=== PATIENT | male | born 1960 | race Caucasian/White ===

== ENCOUNTER 2017-09-03 17:54 | Emergency (ER) | payer SELFPAY ==
[~2017-09-03] VITALS: Ht 172.7 cm; Wt 72.6 kg
[~2017-09-03 17:54] MED LIST: ACET325T53 MC
--- NOTE | 2017-09-03 18:00 | NUR ---
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 Blood sugar 388 upon arrival. PT. also c/o migraine headache since this am. Patient is a/ox 4. Breathing even and unlabored. No sob. Vitals stable. Safety and comfort meaures in place. Awaiting md orders.
[2017-09-03] MEDS ORDERED: ONDANSETRON HCL/PF 4 MG/2 ML VIAL IVP ONE (18:30)
[2017-09-03] MEDS ORDERED: IV NS 0.9% 1,000 ML BAG IV ONE (18:30)
[2017-09-03] MEDS ORDERED: MORPHINE SULFATE INJ 2 MG/ML DISP.SYRIN IV ONE (18:30)
[2017-09-03] MEDS ORDERED: MORPHINE SULFATE INJ 4 MG/ML DISP.SYRIN ONE (18:36)
[2017-09-03] MEDS ORDERED: ONDANSETRON HCL/PF 4 MG/2 ML VIAL ONE (18:36)
--- NOTE | 2017-09-03 18:40 | NUR ---
new iv started on right hand, 20 g. blood drawn and sent to lab.
[2017-09-03 18:42] LABS: BASOPHILS # (AUTO) 0.3 /CMM (0.0-0.2); BASOPHILS % (AUTO) 2.6 % (0.0-2.0); EOSINOPHILS # (AUTO) 0.3 /CMM (0.0-0.7); EOSINOPHILS % (AUTO) 2.5 % (0.0-6.0); HEMATOCRIT 43 % (39-51); HEMOGLOBIN 14.8 g/dL (13.5-17.5); LYMPHOCYTES # (AUTO) 1.1 /CMM (0.8-4.8); LYMPHOCYTES % (AUTO) 10.2 % (20.0-44.0); MEAN CORPUSCULAR HEMOGLOBIN 32 PG (26.0-33.0); MEAN CORPUSCULAR HGB CONC 35 g/dl (31.0-36.0); MEAN CORPUSCULAR VOLUME 92 fL (80-96); MONOCYTES # (AUTO) 0.8 /CMM (0.1-1.30); MONOCYTES % (AUTO) 7.2 % (2.0-12.0); NEUTROPHILS # (AUTO) 7.9 /CMM (1.8-8.9); NEUTROPHILS % (AUTO) 77.5 % (43.0-81.0); PLATELET COUNT (AUTO) 448 /CMM (150-450); RDW COEFFICIENT OF VARIATION 11.8 (11.5-15.0); RED BLOOD CELL COUNT(AUTO) 4.69 MIL/uL (4.5-6.0); WHITE BLOOD COUNT (AUTO) 10.4 K/uL (4.3-11.0)
--- NOTE | 2017-09-03 18:42 | NUR ---
patient medicated per md orders.
[2017-09-03 18:47] LABS: ABG BASE EXCESS -1.7 mmol/L; ABG OXYGEN SATURATION 87.8 % (92.0-98.5); ABG PCO2 29.9 mmHg (35.0-45.0); ABG PO2 50.7 mmHg (75.0-100.0); COHb 6.9 % (0.5-1.5); MetHb 0.4 % (0.0-1.5); O2Hb 81.4 % (94.0-97.0)
[2017-09-03 18:55] LABS: CALCIUM, SERUM 9.1 mg/dL (8.5-10.1); CARBON DIOXIDE 22 mmol/L (21-32); CHLORIDE 90 mmol/L (98-107); CREATININE 0.8 mg/dL (0.6-1.3); POTASSIUM 4.5 mmol/L (3.5-5.1); SODIUM SERUM 123 mmol/L (136-145); UREA NITROGEN, BLOOD 12 mg/dL (7-18)
[2017-09-03 18:59] LABS: TROPONIN I < 0.017 ng/mL (0.00-0.056)
[2017-09-03 19:05] LABS: GLUCOSE 357 mg/dL (74-106)
--- NOTE | 2017-09-03 19:18 | NUR ---
Report given to Franck RAPHAEL for SANYA.
--- NOTE | 2017-09-03 19:19 | NUR ---
RECEIVED REPORT FROM DONAVON ENCARNACION FOR SANYA.
--- NOTE | 2017-09-03 19:20 | NUR ---
DR. CABA AT BEDSIDE SPEAKING TO PT REGARDING RESULTS.
[2017-09-03] MEDS ORDERED: HYDROCODONE/APAP 10/325MG 1 EA TABLET ONE (19:26)
--- NOTE | 2017-09-03 19:29 | NUR ---
VERIFIED AND WITNESSED LISPRO 6UNITS SQ PER MD ORDERS WITH [facility]AV[facility] ENCARNACION.
[2017-09-03] MEDS ORDERED: HYDROCODONE/APAP 10/325MG 1 EA TABLET PO ONE (19:30)
[2017-09-03] MEDS ORDERED: INSULIN LISPRO/ASPART 100 UNIT/ML CARTRIDGE SQ ONE (19:30)
--- NOTE | 2017-09-03 20:00 | NUR ---
IV removed. Catheter intact and site benign. Pressure and 4x4 applied to site. No bleeding noted. Patient discharged to home in stable condition. Written and verbal after care instructions given. Patient verbalizes understanding of instruction. ambulatory with a steady gait. instructed not to drive. pt verbalize understanding. pt accompanied by friend.
[2017-09-03 20:01] VITALS: BP 110/87
== END 2017-09-03 20:03 | disposition home or self-care (01) ==
LOC: ER 18:01
DX: E11.65 Type 2 diabetes mellitus with hyperglycemia (principal); E86.0 Dehydration; R51 Headache; F17.200 Nicotine dependence, unspecified, uncomplicated; Z79.4 Long term (current) use of insulin
CPT/HCPCS: 36415; 36600; 71010; 80048; 82803; 84484; 85025; 93005; 96361; 96372; 96374; 96375; 99285; A4606; J1815; J2270; J2405; J7030; Z7610

== ENCOUNTER 2017-09-09 13:06 | Emergency (ER) | payer SELFPAY ==
[~2017-09-09] VITALS: Ht 172.7 cm; Wt 72.6 kg
--- NOTE | 2017-09-09 13:10 | NUR ---
AAOX3, C/O HEADACHES X THIS AM, "I CHECKED MY SUGAR ITS 425" HUMALOG 10 UNITS TAKEN 2 HRS AGO. RR IS EVEN AND UNLABORED WITH NAD NOTED. SKIN IS WARM AND DRY. DR URIOSTEGUI AT BS FOR EVAL.
[2017-09-09] MEDS ORDERED: HYDROMORPHONE INJ 2 MG/ML DISP.SYRIN IV ONE (13:30)
[2017-09-09] MEDS ORDERED: IV NS 0.9% 1,000 ML BAG IV ONE (13:30)
[2017-09-09] MEDS ORDERED: ONDANSETRON HCL/PF 4 MG/2 ML VIAL IVP ONE (13:30)
[2017-09-09] MEDS ORDERED: ONDANSETRON HCL/PF 4 MG/2 ML VIAL ONE (13:39)
[2017-09-09] MEDS ORDERED: HYDROMORPHONE INJ 2 MG/ML DISP.SYRIN ONE ×2 (13:39→15:19)
[2017-09-09 13:41] LABS: BASOPHILS % (AUTO) 0.3 % (0.0-2.0); EOSINOPHILS # (AUTO) 0.2 /CMM (0.0-0.7); EOSINOPHILS % (AUTO) 1.3 % (0.0-6.0); HEMATOCRIT 44 % (39-51); HEMOGLOBIN 14.7 g/dL (13.5-17.5); LYMPHOCYTES # (AUTO) 1.1 /CMM (0.8-4.8); LYMPHOCYTES % (AUTO) 9.4 % (20.0-44.0); MEAN CORPUSCULAR HEMOGLOBIN 31 PG (26.0-33.0); MEAN CORPUSCULAR HGB CONC 33 g/dl (31.0-36.0); MEAN CORPUSCULAR VOLUME 93 fL (80-96); MONOCYTES # (AUTO) 0.5 /CMM (0.1-1.30); MONOCYTES % (AUTO) 4.5 % (2.0-12.0); NEUTROPHILS # (AUTO) 9.7 /CMM (1.8-8.9); NEUTROPHILS % (AUTO) 84.5 % (43.0-81.0); PLATELET COUNT (AUTO) 406 /CMM (150-450); RDW COEFFICIENT OF VARIATION 12.5 (11.5-15.0); RED BLOOD CELL COUNT(AUTO) 4.75 MIL/uL (4.5-6.0); WHITE BLOOD COUNT (AUTO) 11.5 K/uL (4.3-11.0)
[2017-09-09 13:55] LABS: ALBUMIN 3.1 g/dL (3.4-5.0); BILIRUBIN,DIRECT 0.1 mg/dL (0.0-0.2); BILIRUBIN,TOTAL 0.2 mg/dL (0.2-1.0); CALCIUM, SERUM 9.1 mg/dL (8.5-10.1); POTASSIUM 4.5 mmol/L (3.5-5.1); TOTAL PROTEIN, SERUM 6.8 g/dL (6.4-8.2)
[2017-09-09] MEDS ORDERED: INSULIN REGULAR, HUMAN 100 UNIT/ML 10 ML VIAL ONE (14:14)
--- NOTE | 2017-09-09 14:17 | NUR ---
CALLED RT FORA BREATHING TREATMENT ORDER.
[2017-09-09] MEDS ORDERED: IPRATROPIUM NEB FS 0.5 MG/2.5 ML AMPUL.NEB ONE (14:23)
[2017-09-09] MEDS ORDERED: ALBUTEROL FS 2.5 MG/3 ML VIAL.NEB ONE (14:23)
[2017-09-09] MEDS ORDERED: ALBUTEROL FS 2.5 MG/3 ML VIAL.NEB NEB ONE (14:30)
[2017-09-09] MEDS ORDERED: IV NS 0.9% 1,000 ML IV ONE (14:30)
[2017-09-09] MEDS ORDERED: INSULIN REGULAR, HUMAN 100 UNIT/ML 10 ML VIAL SQ ONE (14:30)
[2017-09-09] MEDS ORDERED: IPRATROPIUM NEB FS 0.5 MG/2.5 ML AMPUL.NEB NEB ONE (14:30)
[2017-09-09] MEDS ORDERED: METOCLOPRAMIDE HCL 10 MG/2 ML VIAL IV ONE (15:00)
[2017-09-09] MEDS ORDERED: HYDROMORPHONE 1 MG/1 ML DISP.SYRIN IV ONE (15:00)
[2017-09-09] MEDS ORDERED: METOCLOPRAMIDE HCL 10 MG/2 ML VIAL ONE (15:19)
--- NOTE | 2017-09-09 15:47 | NUR ---
IV removed. Catheter intact and site benign. Pressure and 4x4 applied to site. No bleeding noted.Patient discharged to home in stable condition. Written and verbal after care instructions given. Patient verbalizes understanding of instruction.
[2017-09-09 15:55] VITALS: BP 110/65
== END 2017-09-09 15:55 | disposition home or self-care (01) ==
LOC: ER 13:07
DX: E11.65 Type 2 diabetes mellitus with hyperglycemia (principal); G43.909 Migraine, unspecified, not intractable, without status migrainosus; F17.200 Nicotine dependence, unspecified, uncomplicated; Z79.4 Long term (current) use of insulin
CPT/HCPCS: 36415; 71010; 80048; 80076; 82010; 82962 ×2; 83690; 85025; 94640; 96361; 96372; 96374; 96375; 96376; 99285; A4606; J1170 ×2; J1815; J2405; J2765; J7030 ×2; Z7610

== ENCOUNTER 2017-09-16 12:46 | Emergency (ER) | payer SELFPAY ==
[~2017-09-16] VITALS: Ht 165.1 cm; Wt 68.0 kg
--- NOTE | 2017-09-16 13:10 | NUR ---
SELF PRESENTS TO ER C/O HEADACHE, HYPERGLYCEMIA. 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 A/OX 4. BREATHING EVEN AND UNLABORED. NO SOB. VITALS STABLE. SAFETY AND COMFORT MEASURES IN PLACE. AWAITING MD ORDERS.
--- NOTE | 2017-09-16 13:20 | NUR ---
NEW IV STARTED ON RFA, 20 G. BLOOD DRAWN AND SENT TO LAB.
[2017-09-16] MEDS ORDERED: IV NS 0.9% 1,000 ML BAG IV ONE (13:30)
[2017-09-16] MEDS ORDERED: HYDROCODONE/APAP 5/325MG 1 EACH TABLET ONE (13:30)
[2017-09-16] MEDS ORDERED: MAG HYDROX/AL HYDROX/SIMETH 30 ML UDC ONE ×2 (13:30→13:35)
[2017-09-16] MEDS ORDERED: HYDROCODONE/APAP 5/325MG 1 EACH TABLET PO ONE (13:30)
[2017-09-16] MEDS ORDERED: METOCLOPRAMIDE HCL 10 MG TABLET PO ONE (13:30)
[2017-09-16] MEDS ORDERED: METOCLOPRAMIDE HCL 10 MG TABLET ONE (13:30)
[2017-09-16] MEDS ORDERED: MAG HYDROX/AL HYDROX/SIMETH 30 ML UDC PO ONE (13:30)
[2017-09-16 13:35] LABS: BASOPHILS # (AUTO) 0.4 /CMM (0.0-0.2); BASOPHILS % (AUTO) 3.6 % (0.0-2.0); EOSINOPHILS # (AUTO) 0.3 /CMM (0.0-0.7); EOSINOPHILS % (AUTO) 2.5 % (0.0-6.0); HEMATOCRIT 43 % (39-51); HEMOGLOBIN 14.7 g/dL (13.5-17.5); LYMPHOCYTES # (AUTO) 1.7 /CMM (0.8-4.8); LYMPHOCYTES % (AUTO) 15.9 % (20.0-44.0); MEAN CORPUSCULAR HEMOGLOBIN 31 PG (26.0-33.0); MEAN CORPUSCULAR HGB CONC 34 g/dl (31.0-36.0); MEAN CORPUSCULAR VOLUME 93 fL (80-96); MONOCYTES # (AUTO) 0.7 /CMM (0.1-1.30); MONOCYTES % (AUTO) 6.4 % (2.0-12.0); NEUTROPHILS # (AUTO) 7.7 /CMM (1.8-8.9); NEUTROPHILS % (AUTO) 71.6 % (43.0-81.0); PLATELET COUNT (AUTO) 420 /CMM (150-450); RDW COEFFICIENT OF VARIATION 11.9 (11.5-15.0); RED BLOOD CELL COUNT(AUTO) 4.69 MIL/uL (4.5-6.0); WHITE BLOOD COUNT (AUTO) 10.8 K/uL (4.3-11.0)
[2017-09-16] MEDS ORDERED: METOCLOPRAMIDE HCL 10 MG/2 ML VIAL ONE (13:35)
--- NOTE | 2017-09-16 13:36 | NUR ---
PATIENT MEDICATED PER MD ORDERS.
[2017-09-16 13:53] LABS: BILIRUBIN,TOTAL 0.3 mg/dL (0.2-1.0); CALCIUM, SERUM 8.8 mg/dL (8.5-10.1); CREATININE 0.8 mg/dL (0.6-1.3); POTASSIUM 4.6 mmol/L (3.5-5.1); TOTAL PROTEIN, SERUM 6.2 g/dL (6.4-8.2)
[2017-09-16] MEDS ORDERED: INSULIN REGULAR, HUMAN 100 UNIT/ML 10 ML VIAL ONE (14:22)
--- NOTE | 2017-09-16 14:24 | NUR ---
Jonathon DAWKINS MD INFORMED. ORDERED 8 UNITS INSULIN.
[2017-09-16] MEDS ORDERED: INSULIN REGULAR, HUMAN 100 UNIT/ML 10 ML VIAL SQ ONE (14:30)
--- NOTE | 2017-09-16 14:40 | NUR ---
IV removed. Catheter intact and site benign. Pressure and 4x4 applied to site. No bleeding noted.
--- NOTE | 2017-09-16 14:40 | NUR ---
Patient stating he feels fine to go home after insulin and ivf. MD informed and cleared for discharge. Patient discharged to home in stable condition. Written and verbal after care instructions given. Patient verbalizes understanding of instruction.
[2017-09-16 14:44] VITALS: BP 128/66
== END 2017-09-16 14:45 | disposition home or self-care (01) ==
LOC: ER 12:48
DX: E11.65 Type 2 diabetes mellitus with hyperglycemia (principal); G89.29 Other chronic pain; R51 Headache; F17.200 Nicotine dependence, unspecified, uncomplicated; Z79.4 Long term (current) use of insulin
CPT/HCPCS: 36415; 80053; 82962 ×2; 84484; 85025; 93005; 96360; 96372; 99285; A4606; J1815; J7030; J8597; Z7610; J2765

== ENCOUNTER 2017-09-24 23:19 | Emergency (ER) | payer SELFPAY ==
[~2017-09-24] VITALS: Ht 172.7 cm; Wt 72.6 kg
[2017-09-24] MEDS ORDERED: HYDROCODONE/APAP 5/325MG 1 EACH TABLET PO STA (23:37)
--- NOTE | 2017-09-24 23:50 | NUR ---
PT PRESENTED TO THE ER WITH A C/O GARCIA AND HIGH BLOOD SUGAR. PT IS AA&O X4. PT IS AMBULATORY WITH A STEADY GAIT. VSS.
[2017-09-25] MEDS ORDERED: ONDANSETRON HCL/PF 4 MG/2 ML VIAL IVP ONE
[2017-09-25] MEDS ORDERED: IV NS 0.9% 1,000 ML BAG IV ONE ×2
[2017-09-25] MEDS ORDERED: HYDROCODONE/APAP 5/325MG 1 EACH TABLET ONE ×2 (00:01→00:42)
[2017-09-25] MEDS ORDERED: ONDANSETRON HCL/PF 4 MG/2 ML VIAL ONE (00:01)
[2017-09-25 00:35] LABS: BASOPHILS % (AUTO) 0.3 % (0.0-2.0); EOSINOPHILS # (AUTO) 0.2 /CMM (0.0-0.7); EOSINOPHILS % (AUTO) 2.4 % (0.0-6.0); HEMATOCRIT 40 % (39-51); HEMOGLOBIN 13.2 g/dL (13.5-17.5); LYMPHOCYTES # (AUTO) 1.4 /CMM (0.8-4.8); LYMPHOCYTES % (AUTO) 16.7 % (20.0-44.0); MEAN CORPUSCULAR HEMOGLOBIN 31 PG (26.0-33.0); MEAN CORPUSCULAR HGB CONC 33 g/dl (31.0-36.0); MEAN CORPUSCULAR VOLUME 93 fL (80-96); MONOCYTES # (AUTO) 0.8 /CMM (0.1-1.30); MONOCYTES % (AUTO) 9.9 % (2.0-12.0); NEUTROPHILS % (AUTO) 70.7 % (43.0-81.0); PLATELET COUNT (AUTO) 306 /CMM (150-450); RDW COEFFICIENT OF VARIATION 12.9 (11.5-15.0); RED BLOOD CELL COUNT(AUTO) 4.31 MIL/uL (4.5-6.0); WHITE BLOOD COUNT (AUTO) 8.4 K/uL (4.3-11.0)
--- NOTE | 2017-09-25 00:37 | NUR ---
Lucrecia wheat in [facility] - 09/25/17 at 0041 by DENISE CALLED EMERGENCY DEPARTMENT RN US JANUARY CARRINGTON FOR RIGHT TESTICLE [facility]
[2017-09-25 00:56] LABS: ALBUMIN 2.8 g/dL (3.4-5.0); BILIRUBIN,DIRECT 0.1 mg/dL (0.0-0.2); BILIRUBIN,TOTAL 0.3 mg/dL (0.2-1.0); CALCIUM, SERUM 8.7 mg/dL (8.5-10.1); CREATININE 0.8 mg/dL (0.6-1.3); POTASSIUM 4.8 mmol/L (3.5-5.1); TOTAL PROTEIN, SERUM 6.2 g/dL (6.4-8.2)
[2017-09-25] MEDS ORDERED: INSULIN REGULAR, HUMAN 100 UNIT/ML 10 ML VIAL SQ STA (00:59)
[2017-09-25] MEDS ORDERED: INSULIN REGULAR, HUMAN 100 UNIT/ML 10 ML VIAL SQ ONE (01:00)
[2017-09-25] MEDS ORDERED: HYDROCODONE/APAP 5/325MG 1 EACH TABLET PO ONE (01:00)
[2017-09-25] MEDS ORDERED: INSULIN REGULAR, HUMAN 100 UNIT/ML 10 ML VIAL ONE (01:06)
--- NOTE | 2017-09-25 02:05 | NUR ---
IV removed. Catheter intact and site benign. Pressure and 4x4 applied to site. No bleeding noted.Patient discharged to home in stable condition. Written and verbal after care instructions given. Patient verbalizes understanding of instruction. PT AMBULATED OUT WITH A STEADY GAIT. PT IS CALLING A TAXI TO TAKE HIM HOME. VSS.
[2017-09-25 02:18] VITALS: BP 149/76
== END 2017-09-25 02:01 | disposition home or self-care (01) ==
LOC: ER 23:19
DX: Z76.5 Malingerer [conscious simulation] (principal); E11.65 Type 2 diabetes mellitus with hyperglycemia; F17.200 Nicotine dependence, unspecified, uncomplicated; Z79.4 Long term (current) use of insulin
CPT/HCPCS: 36415; 80048-TC; 80076-TC; 82962-TC; 85025-TC; A4606; J1815; J2405; J7030; Z7610

== ENCOUNTER 2017-09-30 17:42 | Emergency (ER) | payer MEDICARE, BC ==
[~2017-09-30] VITALS: Ht 172.7 cm; Wt 72.6 kg
[2017-09-30] MEDS ORDERED: HYDROCODONE/APAP 10/325MG 1 EA TABLET PO ONE (18:30)
--- NOTE | 2017-09-30 18:37 | NUR ---
PATIENT ASKING TO GO OUTSIDE FOR A CIGARETTE. INFORMED HE IS NOT ALLOWED TO GO OUTSIDE AT THIS TIME. PATIENT STATED HE WANTS TO LEAVE AMA. INFORMED AND APPROVED. PATIENT LEFT AMA WITHOUT RECEIVING ANY MEDICATIONS.
[2017-09-30 18:50] VITALS: BP 145/85
--- NOTE | 2017-09-30 18:59 | NUR ---
Patient does not wish to proceed with medical care recommended by Dr. JIMENEZ. Patient given information related to possible complications, up to and including , which could occur as a result of leaving the hospital at this time. Patient verbalizes understanding of risks involved due to leaving against medical advice. Patient has signed AMA form.
== END 2017-09-30 19:01 | disposition left against medical advice (07) ==
LOC: ER 17:44
DX: G43.909 Migraine, unspecified, not intractable, without status migrainosus (principal); E11.9 Type 2 diabetes mellitus without complications; F17.200 Nicotine dependence, unspecified, uncomplicated; Z79.4 Long term (current) use of insulin
CPT/HCPCS: 82962; 99282; A4606; Z7610